=== PATIENT | female | born 1950 | race Asian ===

== ENCOUNTER → 2021-10-12 12:39 | Outpatient (CLI) | payer MEDICARE, OTHER, SELFPAY | PROVIDERS: Referring Provider Family Medicine; Visit Provider Family Medicine | DX: S22.000A Wedge compression fracture of unspecified thoracic vertebra, initial encounter for closed fracture (principal); Z53.8 Procedure and treatment not carried out for other reasons ==

== ENCOUNTER 2023-12-15 19:09 | Emergency (ER) | payer MEDICARE, OTHER, SELFPAY ==
[2023-12-15] VITALS (11 sets, daily range): BP systolic 107–146; BP diastolic 54–84; PULSE 91–118; RESP 18; TEMP 36.7; O2SAT 96–100; BMI 23.7
[2023-12-15 20:21] LABS: Add Manual Diff / Slide Review NO; Basophils Absolute Auto 100 /uL (0-100); Basophils Percent Auto 0.4 % (0-2); Eosinophils Absolute Auto 0 /uL (0-450); Eosinophils Percent Auto 0.3 % (2-4); Hematocrit 34.6 % (36-46); Hemoglobin 11.4 g/dL (12.0-16.0); Lymphocytes Absolute Auto 1100 /uL (1100-4500); Lymphocytes Percent Auto 7.2 % (25-40); Mean Corpuscular HGB Conc 32.9 % (30-36); Mean Corpuscular Hemoglobin 30.2 PG (26-34); Monocytes Absolute Auto 900 /uL (0-900); Monocytes Percent Auto 5.7 % (3-14); Neutrophils Absolute Auto 13100 /uL (1500-7000); Neutrophils Percent Auto 86.4 % (50-75); Platelet Count 210 X10^3/uL (150-400); Red Blood Cell Count 3.76 X10^6/uL (4.0-5.2); White Blood Cell Count 15.2 X10^3/uL (4.5-11.0)
[2023-12-15 20:25] LABS: Alanine Aminotransferase 29 IU/L (<35); Albumin 4.3 g/dL (3.5-5.0); Albumin Globulin Ratio 1.2 (1.0-2.8); Alkaline Phosphatase 84 U/L (38-126); Aspartate Aminotransferase 32 IU/L (14-36); BUN Creatinine Ratio 14.3 (6-22); Bilirubin Total 0.9 mg/dL (0.2-1.3); Blood Urea Nitrogen 37 mg/dL (7-17); Calcium 9.3 mg/dL (8.4-10.2); Carbon Dioxide 20 mmol/L (22-32); Chloride 107 mmol/L (98-107); Estimated Glomerular Filt Rate 19 mL/min (>60); Globulin 3.6 g/dL (1.7-4.1); Glucose 93 mg/dL (80-110); HEMOLYSIS < 15 (0-50); Lipase 37 U/L (23-300); Potassium 4.7 mmol/L (3.4-5.1); Sodium 138 mmol/L (137-145); Total Protein 7.9 g/dL (6.3-8.2)
--- NOTE | 2023-12-15 21:33 | DI.CT.S_ITS ---
PROCEDURE: CT ABDOMEN PELVIS WO CON INDICATIONS: abdominal and rectum pain TECHNIQUE: No IV contrast was given in this patient, secondary to renal insufficiency. Axial sections were acquired from the lung bases to the pubic symphysis. Coronal and sagittal reformats were performed. For radiation dose reduction, the following was used: automated exposure control, adjustment of mA and/or kV according to patient size. COMPARISON: Outside Film, CT, CT ABDOMEN PELVIS WITHOUT CONTRAST, 07/26/2022, 10:27. [facility] Ultrasound, US, US RENAL COMPLETE, 10/05/2022, 13:16. FINDINGS: Image quality: Limited by lack of IV contrast Lower Chest: Prominent coronary artery calcification is seen. URINARY: Right Kidney: No stones or hydronephrosis. Right Ureter: No hydroureter. Left Kidney: No stones or hydronephrosis. Left Ureter: No hydroureter. Bladder: Normal wall thickness. No stones. ABDOMEN: Liver: No contour-deforming solid mass. Gallbladder: No radiopaque gallstones or wall thickening. Biliary ducts: No biliary dilation. Pancreas: No ductal dilation. Spleen: Size is within normal limits. Adrenal Glands: Generalized thickening can be seen of the adrenal glands, yet without focal adrenal nodules. Stomach and Bowel: In this patient with this given history, scrutiny is given to the rectum. There is generalized distal rectal wall thickening seen, with mild surrounding inflammatory change. There is a moderate volume of stool seen within the colon. A normal appendix is noted. A normal appendix is noted. Peritoneum: No peritoneal abscess is seen. No abnormal intraperitoneal fluid. No free air. Ventral Wall: No hernia. Abdominal Nodes: No enlarged retroperitoneal or mesenteric lymph nodes. Vessels: Aorta and inferior vena cava are normal in size. Atherosclerotic calcification is noted. PELVIS: Pelvic Organs: No adnexal masses are seen on either side. Pelvic Nodes: Unremarkable. Miscellaneous: No inguinal hernias are seen. Bones: Minimal compression deformities can be seen of T9 and T10 There is a remote T12 anterior wedge deformity, which is stable. Age-appropriate bony degenerative changes are seen. IMPRESSION: Generalized rectal wall thickening can be seen, with mild surrounding inflammatory change. Proctitis is suspected. Neoplasm is possible, yet considered to be less likely. No findings of perforation or abscess are detected. When clinically appropriate (following adequate treatment of the patient's current clinical episode) a colonoscopy is recommended for further evaluation for a potential underlying mass (if not already recently done). There is a moderate amount of stool seen within the colon. Please correlate with an underlying history of constipation. Negative for small bowel obstruction. Additional findings: Prominent coronary artery calcification Remote, stable T9, T10, and T12 anterior wedge deformity Generalized thickening of the adrenal glands Negative for kidney stones or obstructive uropathy. Normal appendix Dictated by: Remy Johnson M.D. on 12/15/2023 at 20:56 Approved by: Remy Johnson M.D. on 12/15/2023 at 21:01
--- NOTE | 2023-12-15 21:52 | ED.ABDPAIN ---
HPI - Abdominal Pain General Chief Complaint: Abdominal Pain Stated Complaint: discomfort in abd and bottom Time Seen by Provider: 12/15/23 21:33 Source: patient and family Mode of arrival: Ambulatory History of Present Illness HPI narrative: 73-year-old female with history of renal insufficiency followed by [facility] bird keeper Dr. Davis, who has seen patient in [facility] as well as an outpatient in clinic, no dialysis but renal insufficiency known, complains of 2 days' duration low back pain with perirectal discomfort, no drainage, no black stools, no red stools, no nausea or vomiting. No frequency or painful urination. No injury, trauma, new activities. She has not tried any medications for this. No vaginal bleeding known. Related Data Previous Rx's Medication Instructions Recorded ciprofloxacin HCl 500 mg tablet 500 mg PO BID #14 tabs 12/15/23 (Cipro) lactulose 20 gram/30 mL oral 20 g (30 mL) PO BID #300 mL 12/15/23 solution metronidazole 500 mg tablet 500 mg PO TID #30 tabs 12/15/23 Allergies Allergy/AdvReac Type Severity Reaction Status Date / Time No Known Drug Allergies Allergy Verified 12/15/23 19:25 Review of Systems Review of Systems Narrative: see HPI Patient History Social History Smoking Status: Never smoker Smoking Status: Never smoker Substance Use Type: does not use Exam Narrative Exam Narrative: GENERAL: Well-developed patient, in mild distress. HEAD: Atraumatic. Normocephalic. EYES: Pupils equal round and reactive. Extraocular motions intact. No scleral icterus. No injection or drainage. ENT: Nose without bleeding, purulent drainage. Throat without erythema, tonsillar hypertrophy or exudate. Airway patent. NECK: Trachea midline. Non tender CARDIOVASCULAR: Regular rate and rhythm without murmurs, gallops, or rubs. RESPIRATORY: Clear to auscultation. Breath sounds equal bilaterally. No wheezes, rales, or rhonchi. GASTROINTESTINAL: Abdomen soft, non-tender, nondistended. External perirectal inspection unremarkable, no obvious asymmetry, no visible hemorrhoids, no buttock lesions obvious. No black or red dried exudate. EXTREMITIES: No edema or joint tenderness. BACK: Nontender without deformity or crepitance. No flank tenderness. NEURO: AOx3. Motor functions grossly nonfocal SKIN: No rash or erythema of visible areas Initial Vital Signs Initial Vital Signs: Vital Signs Temperature 98.1 F 12/15/23 19:25 Pulse Rate 118 H 12/15/23 19:25 Respiratory Rate 18 12/15/23 19:25 Blood Pressure 117/56 L 12/15/23 19:25 Pulse Oximetry 99 12/15/23 19:25 Oxygen Delivery Method Room Air 12/15/23 19:25 Course Orders Ordered: ED Orders 12/15/23 19:40 Complete Blood Count AUTO DIFF Stat Comprehensive Metabolic Panel Stat Lipase Stat 12/15/23 21:33 CT abdomen pelvis wo con Stat Discontinued Medications Ciprofloxacin (Ciprofloxacin 250 Mg Tablet) 500 mg PO NOW ONE Stop: 12/15/23 22:13 Last Admin: 12/15/23 22:19 Dose: 500 mg Documented By: Sodium Chloride (Normal Saline 0.9%) 1,000 mls @ 500 mls/hr IV BOLUS ONE Stop: 12/16/23 00:07 Last Infusion: 12/15/23 23:20 Dose: Infused Documented By: Admin: 12/15/23 22:19 Dose: 500 mls/hr Documented By: Lactulose (Lactulose 20 Gm/30 Ml Solution) 20 gm PO NOW ONE Stop: 12/15/23 22:29 Last Admin: 12/15/23 22:36 Dose: 20 gm Documented By: Metronidazole (Metronidazole 500 Mg Tablet) 500 mg PO NOW ONE Stop: 12/15/23 22:13 Last Admin: 12/15/23 22:19 Dose: 500 mg Documented By: Sodium Biphosphate/Sodium Phosphate (Fleets Enema) [address] NOW ONE Stop: 12/15/23 22:28 Last Admin: 12/15/23 22:36 Dose: 1 each Documented By: Vital Signs Vital signs: Vital Signs - 8 hr 12/15/23 19:25 12/15/23 19:36 12/15/23 19:37 Temperature 98.1 F Pulse Rate 118 H 112 H Respiratory Rate 18 Blood Pressure 117/56 L 143/72 H Pulse Oximetry 99 100 Oxygen Delivery Method Room Air 12/15/23 19:37 12/15/23 20:00 12/15/23 20:00 Temperature Pulse Rate 110 H 104 H Respiratory Rate Blood Pressure 146/84 H Pulse Oximetry 99 99 Oxygen Delivery Method Room Air 12/15/23 20:30 12/15/23 20:30 12/15/23 21:00 Temperature Pulse Rate 100 H Respiratory Rate Blood Pressure 128/68 132/72 Pulse Oximetry 96 Oxygen Delivery Method 12/15/23 21:00 12/15/23 22:09 12/15/23 22:10 Temperature Pulse Rate 93 H 105 H 103 H Respiratory Rate Blood Pressure Pulse Oximetry 97 98 98 Oxygen Delivery Method 12/15/23 22:10 12/15/23 22:30 12/15/23 23:49 Temperature Pulse Rate 103 H 91 H Respiratory Rate Blood Pressure 141/64 H Pulse Oximetry 99 100 Oxygen Delivery Method 12/15/23 23:51 12/15/23 23:51 12/16/23 00:00 Temperature Pulse Rate 92 H Respiratory Rate Blood Pressure 107/54 L 102/51 L Pulse Oximetry 98 Oxygen Delivery Method 12/16/23 00:00 12/16/23 00:30 12/16/23 00:30 Temperature Pulse Rate 89 87 Respiratory Rate Blood Pressure 106/70 Pulse Oximetry 98 98 Oxygen Delivery Method Room Air MDM - Abdominal Pain Lab Data Attestation: I reviewed the patient's lab results. Lab results narrative: White blood cell count 86550, hemoglobin 11.4, platelets adequate. BUN 37, creatinine 2.58 elevated, GFR 19 decreased. Glucose 93, potassium 4.7 normal, sodium 138 noted. Serum CO2 20 noted. Anion gap 11. Liver functions unremarkable, lipase normal. 12/15/23 19:40 12/15/23 19:40 Labs: Lab Results 12/15/23 Range/Units 19:40 WBC 15.2 H (4.5-11.0) X10^3/uL RBC 3.76 L (4.0-5.2) X10^6/uL Hgb 11.4 L (12.0-16.0) g/dL Hct 34.6 L (36-46) % MCV 92.0 (80-100) fL MCH 30.2 (26-34) PG MCHC 32.9 (30-36) % RDW 14.0 (11.6-14.8) % Plt Count 210 (150-400) X10^3/uL Neut % (Auto) 86.4 H (50-75) % Lymph % (Auto) 7.2 L (25-40) % Griggs % (Auto) 5.7 (3-14) % Eos % (Auto) 0.3 L (2-4) % Baso % (Auto) 0.4 (0-2) % Neut # (Auto) 15855 H (8872-4641) /uL Lymph # (Auto) 1100 (0861-5818) /uL Griggs # (Auto) 900 (0-900) /uL Eos # (Auto) 0 (0-450) /uL Baso # (Auto) 100 (0-100) /uL Sodium 138 (137-145) mmol/L Potassium 4.7 (3.4-5.1) mmol/L Chloride 107 (98-107) mmol/L Carbon Dioxide 20 L (22-32) mmol/L BUN 37 H (7-17) mg/dL Creatinine 2.58 H (0.52-1.04) mg/dL Estimated GFR 19 L (>60) mL/min BUN/Creatinine Ratio 14.3 (6-22) Glucose 93 (80-110) mg/dL Calcium 9.3 (8.4-10.2) mg/dL Total Bilirubin 0.9 (0.2-1.3) mg/dL AST 32 (14-36) IU/L ALT 29 (<35) IU/L Alkaline Phosphatase 84 (38-126) U/L Total Protein 7.9 (6.3-8.2) g/dL Albumin 4.3 (3.5-5.0) g/dL Globulin 3.6 (1.7-4.1) g/dL Albumin/Globulin Ratio 1.2 (1.0-2.8) Lipase 37 (23-300) U/L Imaging Data CT scan - abdomen/pelvis: Radiologist's Impression: [place] [address] CT Scan Report Signed Patient: Moriah Padilla MR#: [id number] : 1950 Acct:[id number] Age/Sex: 73 / F Date of Service: 12/15/23 Loc: ED Accession Number: [id number] Procedure: CT abdomen pelvis wo con Ordering Provider: Sylvester Ferreira MD PROCEDURE: CT ABDOMEN PELVIS WO CON INDICATIONS: abdominal and rectum pain TECHNIQUE: No IV contrast was given in this patient, secondary to renal insufficiency. Axial sections were acquired from the lung bases to the pubic symphysis. Coronal and sagittal reformats were performed. For radiation dose reduction, the following was used: automated exposure control, adjustment of mA and/or kV according to patient size. COMPARISON: Outside Film, CT, CT ABDOMEN PELVIS WITHOUT CONTRAST, 07/26/2022, 10:27. [facility] Ultrasound, US, US RENAL COMPLETE, 10/05/2022, 13:16. FINDINGS: Image quality: Limited by lack of IV contrast Lower Chest: Prominent coronary artery calcification is seen. URINARY: Right Kidney: No stones or hydronephrosis. Right Ureter: No hydroureter. Left Kidney: No stones or hydronephrosis. Left Ureter: No hydroureter. Bladder: Normal wall thickness. No stones. ABDOMEN: Liver: No contour-deforming solid mass. Gallbladder: No radiopaque gallstones or wall thickening. Biliary ducts: No biliary dilation. Pancreas: No ductal dilation. Spleen: Size is within normal limits. Adrenal Glands: Generalized thickening can be seen of the adrenal glands, yet without focal adrenal nodules. Stomach and Bowel: In this patient with this given history, scrutiny is given to the rectum. There is generalized distal rectal wall thickening seen, with mild surrounding inflammatory change. There is a moderate volume of stool seen within the colon. A normal appendix is noted. A normal appendix is noted. Peritoneum: No peritoneal abscess is seen. No abnormal intraperitoneal fluid. No free air. Ventral Wall: No hernia. Abdominal Nodes: No enlarged retroperitoneal or mesenteric lymph nodes. Vessels: Aorta and inferior vena cava are normal in size. Atherosclerotic calcification is noted. PELVIS: Pelvic Organs: No adnexal masses are seen on either side. Pelvic Nodes: Unremarkable. Miscellaneous: No inguinal hernias are seen. Bones: Minimal compression deformities can be seen of T9 and T10 There is a remote T12 anterior wedge deformity, which is stable. Age-appropriate bony degenerative changes are seen. IMPRESSION: Generalized rectal wall thickening can be seen, with mild surrounding inflammatory change. Proctitis is suspected. Neoplasm is possible, yet considered to be less likely. No findings of perforation or abscess are detected. When clinically appropriate (following adequate treatment of the patient's current clinical episode) a colonoscopy is recommended for further evaluation for a potential underlying mass (if not already recently done). There is a moderate amount of stool seen within the colon. Please correlate with an underlying history of constipation. Negative for small bowel obstruction. Additional findings: Prominent coronary artery calcification Remote, stable T9, T10, and T12 anterior wedge deformity Generalized thickening of the adrenal glands Negative for kidney stones or obstructive uropathy. Normal appendix Dictated by: Remy Johnson M.D. on 12/15/2023 at 20:56 Approved by: Remy Johnson M.D. on 12/15/2023 at 21:01 [facility] Narrative Medical decision making narrative: 73-year-old female followed at outside bird keeper, renal insufficiency, GFR per daughter less than 30, not yet on dialysis, followed by [facility] bird keeper but seen most recently at [facility] by the same bird keeper, now with new perirectal discomfort and low back pain atraumatic since yesterday. Afebrile on triage. No obvious perirectal asymmetry or lesions. White blood cell count elevated. GFR [address] abdomen and pelvis imaging noncontrast study ordered. Review of lab records, copies of outside [facility] results, dated 12/03/2023. White blood cell count at that time 8500, hemoglobin 10.9, platelets [id number]. Glucose then 340, BUN 36 with creatinine 2.16, GFR 23, potassium at that time 5.4, with sodium 136, chloride 100 with carbon dioxide 21. PTH 38, urine creatinine 56, urine albumin 112. Albumin/creatinine ratio [address] abdomen and pelvis showed proctitis changes, no perforation or abscess, no obstructive changes, also some stool burden noted. See radiology report. Fleets then soapsuds enema, with some results, felt better. Oral ciprofloxacin dose, oral Flagyl dose, further prescriptions antibiotics sent to her pharmacy. Encouraged to take antibiotics. Follow up with PCP early next week. Return precautions discussed. Renal insufficiency worse than recent reported values, follow up with Nephrology encouraged, IV fluids given while emergency department. Encouraged to take oral fluids. Home with family. Discharge Plan Departure Patient Disposition: Home Clinical Impression: Acute proctitis, Constipation Instructions: DI for Constipation Activity Restrictions/Additional Instructions: Low back discomfort, also perirectal discomfort. CT scanning shows some inflammatory change in the perirectal area, consistent with proctitis, no description of perforation or abscess however at this time. Consider follow up colonoscopy to make sure the thickening is not cancer related in any way. Course of oral antibiotics for now, in case it is infectious/inflammatory. Sometimes topical steroids might be useful. Trial of antibiotics only for now. Oral Lactulose stool softener sent. Enemas given in the emergency department. Follow up with your regular doctor advised in the next couple of days. Return to this/nearest emergency department for any change worsening symptoms or any concerns prior Prescriptions: New ciprofloxacin HCl [Cipro] 500 mg tablet 500 mg PO BID Qty: 14 0RF metronidazole 500 mg tablet 500 mg PO TID Qty: 30 0RF lactulose 20 gram/30 mL solution 20 g PO BID Qty: 300 0RF Referrals: Milo Turner MD [Primary Care Provider] - Stand Alone Forms: Patient Portal/API
[2023-12-15] MEDS: CIPROFLOXACIN 250 MG TABLET 500 MG PO (22:19)
[2023-12-15] MEDS: SODIUM CHLORIDE 0.9% 1,000 ML 500 ML IV (22:19)
[2023-12-15] MEDS: metroNIDAZOLE 500 MG TABLET PO (22:19)
[2023-12-15] MEDS: FLEETS ENEMA 1 EACH PR (22:36)
[2023-12-15] MEDS: LACTULOSE 20 GM/30 ML SOLUTION PO (22:36)
[2023-12-16] VITALS: BP 102/51; PULSE 89; O2SAT 98
[2023-12-16 00:30] VITALS: BP 106/70; PULSE 87; O2SAT 98
== END 2023-12-16 01:03 | disposition home or self-care (01) ==
PROVIDERS: Emergency Provider Emergency Medicine
DX: K62.89 Other specified diseases of anus and rectum (principal); K59.00 Constipation, unspecified
CPT/HCPCS: 36415; 74176; 80053; 83690; 85025; 96360; 99284